=== PATIENT | female | born 1945 | race Caucasian/White ===

== ENCOUNTER → 2017-11-22 12:47 | Outpatient (CLI) | payer MEDICARE, SELFPAY ==
--- NOTE | 2017-11-22 13:03 | MM_ITS ---
MM Dig mamm DX unilat LT CAD COMPARISON: 05/19/2017, 05/05/2017 INDICATION: Follow-up abnormal mammogram ORDERING PHYSICIAN: Stephanie Morin MD PATIENT AGE: 72 years TECHNIQUE: Standard images performed with spot compression views FINDINGS: Average fibroglandular tissue. No malignant appearing microcalcification or malignant appearing mass. Asymmetric density noted in the superior aspect of the left breast does appear to compress out on compression views as before. Benign-appearing nodular opacity in the lateral aspect of the left breast is less apparent IMPRESSION: Benign findings, no evidence of malignancy BI-RADS Category: 2 Benign Finding(s) RECOMMENDED FOLLOW-UP: 6M - 6 MONTH FOLLOW-UP Recommend bilateral 6 month screening exam to keep the patient on screening schedule (A letter has been sent to the patient regarding results of the study.)
== END ==
PROVIDERS: Family Provider Family Medicine; PCP Family Medicine; Visit Provider Family Medicine
DX: R92.8 Other abnormal and inconclusive findings on diagnostic imaging of breast (principal)
CPT/HCPCS: 77065

== ENCOUNTER → 2018-05-10 09:13 | Outpatient (CLI) | payer MEDICARE, SELFPAY ==
--- NOTE | 2018-05-10 09:21 | MM_ITS ---
MM Dig screening mamm BI w/CAD ORDERING PHYSICIAN : Stephanie Morin MD PATIENT AGE: 72 years GENDER: Female COMPARISON: Bilateral mammogram April 2017. January 2014, March 2016, 2014. INDICATION: ITS.REASON: SCREENING patient does take evista. No hormones no new complaints. Family history. 2 sisters with breast cancer. One maternal aunt TECHNIQUE: Standard CC and MLO images were obtained. R2 CAD reviewed. FINDINGS: Moderate density breast. RIGHT BREAST:Stable right mammogram. Follow-up in one year LEFT BREAST:There is question last year are no longer evident on today's study further confirming they were merely summation shadows. Small nodular density at the lateral left breast on cc view stable since 2013 2014 studies.. Not of concern The skin mole marker at the medial left breast is again noted. Accounting for the density here. IMPRESSION: . no significant interval change. Stable mammogram Follow follow-up in one year recommended and would be emphasized & encouraged given the family history BI-RADS Category: 2 Benign Finding(s) RECOMMENDED FOLLOW-UP: 1YR 1 YEAR FOLLOW-UP (A letter has been sent to the patient regarding results of the study.)
== END ==
PROVIDERS: Family Provider Family Medicine; PCP Family Medicine; Visit Provider Family Medicine
DX: Z12.31 Encounter for screening mammogram for malignant neoplasm of breast (principal)
CPT/HCPCS: 77067

== ENCOUNTER → 2019-03-07 13:25 | Outpatient (CLI) | payer MEDICARE, SELFPAY ==
--- NOTE | 2019-03-07 13:29 | XR_ITS ---
XR DEXA axial skeleton HISTORY: ITS.REASON: OSTEOPENIA ORDERING PHYSICIAN: Stephanie Morin MD PATIENT AGE: 73 years COMPARISON: 02/28/2017 FINDINGS: The BMD measured at the AP spine L1-L4 is 0.950 g/cm squared with a T score of -1.9. This is considered Osteopenic according to the World Health Organization criteria. Fracture risk is Moderate. Treatment is advised. The L-spine density has decreased by 2.5%. The main hip density is -0.7 and has decreased by 2.8%. IMPRESSION: Osteopenia with moderate fracture risk. Treatment is advised. Suggest follow-up exam February 2021
== END ==
PROVIDERS: PCP Family Medicine; Visit Provider Family Medicine
DX: M85.89 Other specified disorders of bone density and structure, multiple sites (principal)
CPT/HCPCS: 77080

== ENCOUNTER → 2019-06-18 08:59 | Outpatient (CLI) | payer MEDICARE, SELFPAY ==
--- NOTE | 2019-06-18 09:06 | MM_ITS ---
PROCEDURE: MM DIG SCREENING MAMM BI W/CAD CLINICAL INDICATION: SCREENING There is a history of breast cancer patient's 2 sisters and maternal aunt COMPARISON: DMDXUAVL DIG MAMM-DX UNI A/VWS-LT W/CAD from 05/19/2017 DXLT MM Dig mamm DX unilat LT CAD from 11/22/2017 SCBI MM Dig screening mamm BI w/CAD from 05/10/2018 TECHNIQUE: Standard CC and MLO images were obtained. R2 CAD reviewed. FINDINGS: Scattered diffuse fibroglandular densities are seen throughout both breasts. There are 2 mole markers left breast. There is no suspicious lesion and no suspicious microcalcifications. IMPRESSION: Fibrofatty parenchyma with no suspicious lesions seen BI-RAD Category: 2 Benign Finding(s) FOLLOW-UP: 1YR 1 Year Follow-up (A letter has been sent to the patient regarding results of the study.) Dictated by: Dr. Americo Perez MD 06/24/2019 11:[address] Americo Perez MD in [place] 06/24/2019 11:02
== END ==
PROVIDERS: PCP Family Medicine; Visit Provider Family Medicine
DX: Z12.31 Encounter for screening mammogram for malignant neoplasm of breast (principal)
CPT/HCPCS: 77067

== ENCOUNTER → 2020-06-20 09:54 | Outpatient (CLI) | payer MEDICARE, SELFPAY ==
--- NOTE | 2020-06-20 09:57 | MM_ITS ---
PROCEDURE: MM DIG SCREENING MAMM BI W/CAD Referring Doctor: Stephanie Morin Patient Age:74Y CLINICAL INDICATION: SC routine screening mammogram. No hormones. No new complaints. Positive family history. Two sisters with breast cancer along with a maternal aunt COMPARISON: MG DMSB DIGITAL MAMM-SCREEN BILATERAL from 01/13/2012 MG DMSB DIGITAL MAMM-SCREEN BILATERAL from 01/16/2013 MG DMSB DIG MAMM-SCREEN HAILY from 01/22/2014 MG DMSB DIG MAMM-SCREEN HAILY from 03/18/2015 MG DMSB DIG MAMM-SCREEN HAILY from 03/19/2016 MG DMSB DIG MAMM-SCREEN HAILY W/CAD from 05/05/2017 MG DMDXUAVL DIG MAMM-DX UNI A/VWS-LT W/CAD from 05/19/2017 MG DXLT MM Dig mamm DX unilat LT CAD from 11/22/2017 MG SCBI MM Dig screening mamm BI w/CAD from 05/10/2018 MG MM DIG SCREENING MAMM BI W/CAD from 06/18/2019 TECHNIQUE: Standard CC and MLO images were obtained. R2 CAD reviewed. Bilateral digital breast tomosynthesis. Included additional axillary CC views both breast FINDINGS: Lower density breast with minimal residual diffuse a fibroglandular elements. . Right breast. Stable no new areas of concern Left breast:. Small 6 mm round left breast but in area labeled A at the deepleft breast laterally best seen on MLO tomosynthesis views. Likely stable feature and possibly even a skin mole-as was marked on 2018 MLO view There is a small focal density labeled B at lateral breast projected over the more superior breast. Other areas of nodularity superior left breast seem to dissipate on the MLO tomosynthesis views. However given the combination of features I suggest the patient return full 90 degree view left breast along with MLO and cc spot views of A and B-with mole markers placed on any visible moles. Ultrasound subsequent to this would be suggested Both nodule A and b are evident on the MLO tomosynthesis slice 10 at far lateral breast the There is a mole marker is again seen at the inferior-most breast IMPRESSION: Left breast: Additional views and ultrasound suggested Subtle small nodular densities described in text would benefit from spot views and ultrasound. The area labeled A could be skin mole as suggested on the 2018 MLO view thus mole markers on all visible moles will be important./[place] views may be be added at technologist discretion. Right breast stable. Follow-up 1 year on right. BI-RAD Category: 0 Need Additional Imaging Evaluation FOLLOW-UP: IMM Immediate Follow-up Recommended (A letter has been sent to the patient regarding results of the study.) Right [id number] a Dictated by: Vijay Mercado MD 06/25/2020 12:03 Vijay Mercado MD in [place] 06/25/2020 12:03
== END ==
PROVIDERS: PCP Family Medicine; Visit Provider Family Medicine
DX: Z12.31 Encounter for screening mammogram for malignant neoplasm of breast (principal)
CPT/HCPCS: 77063; 77067

== ENCOUNTER → 2020-07-01 13:49 | Outpatient (CLI) | payer MEDICARE, SELFPAY ==
--- NOTE | 2020-07-01 | US_ITS ---
PROCEDURE: MM DIG MAMM DX UNILAT LT CAD Digital Breast Tomosynthesis Included CLINICAL INDICATION: ABN MAMM COMPARISON: MG SCBI MM Dig screening mamm BI w/CAD from 05/10/2018 MG MM DIG SCREENING MAMM BI W/CAD from 06/18/2019 MG MM DIG SCREENING MAMM BI W/CAD from 06/20/2020 US US BREAST LT COMPLETE from 07/01/2020 TECHNIQUE: Problem solving views left breast along with left breast ultrasound FINDINGS: There is some minimal nodularity noted in the lateral aspect of the left breast on the spot view possibly due to summation density from overlapping vessel and fibroglandular tissue. Less apparent on the XCC view. There is a faint nodular opacity 5 cm deep to the nipple on the mL view. Less apparent on the focal spot view. Left breast ultrasound: No suspicious nodule evident. IMPRESSION: Probably benign findings. Recommend six-month mammographic follow-up BI-RAD Category: 3 Probably Benign Finding Short Term Follow-up FOLLOW-UP: 6M 6Month Follow-up (A letter has been sent to the patient regarding results of the study.) Dictated by: Gamaliel Guadarrama MD 07/09/2020 17:04 Gamaliel Guadarrama MD in [place] 07/09/2020 17:04
== END ==
PROVIDERS: PCP Family Medicine; Visit Provider Family Medicine
DX: R92.8 Other abnormal and inconclusive findings on diagnostic imaging of breast (principal)
CPT/HCPCS: 76641; 77061; 77065; G0279

== ENCOUNTER → 2021-01-06 13:40 | Outpatient (CLI) | payer MEDICARE, SELFPAY ==
--- NOTE | 2021-01-06 13:42 | MM_ITS ---
PROCEDURE: MM DIG MAMM DX UNILAT LT CAD Digital Breast Tomosynthesis Included CLINICAL INDICATION: ABN MAMM OF LT BREAST COMPARISON: MG MM DIG SCREENING MAMM BI W/CAD from 06/18/2019 MG MM DIG SCREENING MAMM BI W/CAD from 06/20/2020 US US BREAST LT COMPLETE from 07/01/2020 MG MM DIG MAMM DX UNILAT LT CAD from 07/01/2020 US US BREAST LT COMPLETE from 01/06/2021 TECHNIQUE: Standard CC and MLO images and 3D Tomosynthesis was obtained. R2 CAD reviewed. FINDINGS: The breast is composed of scattered fibroglandular tissue. No dominant mass lesions or suspicious calcification or architectural distortion is noted. Previously noted asymmetric density in the left breast is less distinct on the current study. Spot compression images demonstrate no evidence of focal masses. Ultrasound of the left breast demonstrates no focal mass lesions or suspicious findings. IMPRESSION: No focal suspicious lesions. BI-RAD Category: 2 Benign Finding(s) FOLLOW-UP: 1YR 1 Year Follow-up (A letter has been sent to the patient regarding results of the study.) Dictated by: Noelle Tobias 01/08/2021 18:46 Nolele Tobias in [place] 01/08/2021 18:46
--- NOTE | 2021-01-06 13:42 | US_ITS ---
PROCEDURE: US BREAST LT COMPLETE CLINICAL INDICATION: ABN MAMM OF LT BREAST COMPARISON: US US BREAST LT COMPLETE from 07/01/2020 FINDINGS: No focal masses or suspicious findings. Few axillary lymph nodes measuring up to 1.3 centimeters, demonstrates normal morphology and central fatty hilum. IMPRESSION: No focal masses or suspicious findings. Dictated by: Noelle Tobias 01/08/2021 18:47 Noelle Tobias in [place] 01/08/2021 18:47
== END ==
PROVIDERS: PCP Family Medicine; Visit Provider Family Medicine
DX: R92.8 Other abnormal and inconclusive findings on diagnostic imaging of breast (principal)
CPT/HCPCS: 76641; 77061; 77065; G0279

== ENCOUNTER → 2021-03-10 09:43 | Outpatient (CLI) | payer MEDICARE, SELFPAY ==
--- NOTE | 2021-03-10 09:57 | XR_ITS ---
PROCEDURE: XR DEXA AXIAL SKELETON CLINICAL HISTORY: OSTEOPENIA COMPARISON: CR BONE3 BONE DENSITOMETRY(HIP:LT SPINE from 02/28/2017 FINDINGS: The right hip BMD is 0.870 with a T-score of -0.6. The left hip BMD is 0.890 with a T-score of -0.4. The lumbar spine BMD is 0.947 with a T-score of -0.9. Previously the lowest bone density was in the AP spine with a T-score of -1.7 IMPRESSION: This patient is considered normal according to the World Health Organization criteria. Fracture risk is low. Based on these results a follow-up exam is recommended in 2 year. Dictated by: Gamaliel Guadarrama MD 03/11/2021 05:34 Gamaliel Guadarrama MD in [place] 03/11/2021 05:34
== END ==
PROVIDERS: PCP Family Medicine; Visit Provider Nurse Practitioner Family
DX: M85.89 Other specified disorders of bone density and structure, multiple sites (principal)
CPT/HCPCS: 77080

== ENCOUNTER → 2021-11-03 09:49 | Outpatient (CLI) | payer MEDICARE, SELFPAY ==
--- NOTE | 2021-11-03 10:02 | XR_ITS ---
FINAL REPORT CLINICAL HISTORY: BRONCHITIS, productive cough for 10 days, nonsmoker, no sx FINDINGS: TWO VIEWS OF THE CHEST The heart is normal in size. The mediastinum is unremarkable. The lungs are clear. There is no pneumothorax. IMPRESSION: No acute cardiopulmonary process. Reviewed, Interpreted and Dictated by Cole Montana MD Transcribed by Sulema Villalobos Authenticated by Cole Montana MD on 11/03/2021 11:59:10 AM [facility]
== END ==
PROVIDERS: PCP Family Medicine; Visit Provider Family Medicine
DX: J40 Bronchitis, not specified as acute or chronic (principal)
CPT/HCPCS: 71046

== ENCOUNTER → 2022-01-07 09:40 | Outpatient (CLI) | payer MEDICARE, SELFPAY ==
--- NOTE | 2022-01-07 09:44 | MM_ITS ---
PROCEDURE INFORMATION: Exam: MG Bilateral Screening 3D Mammography Exam date and time: 01/07/2022 9:42 AM Age: 76 years old Clinical indication: The patient presents for breast screening exam TECHNIQUE: Imaging protocol: Bilateral Screening tomosynthesis and 2D mammography including computer-aided detection (CAD) when performed. COMPARISON: 1. MG MM DIG MAMM DX UNILAT LT CAD 01/06/2021 1:59 PM 2. MG MM DIG MAMM DX UNILAT LT CAD 07/01/2020 1:57 PM FINDINGS: MAMMOGRAPHY: Breast composition: The breast tissue is composed of scattered areas of fibroglandular density. Mass: None. Architectural distortion: None. Calcifications: No suspicious calcifications. Asymmetric density: None. Skin thickening: None. Axillary adenopathy: None. IMPRESSION: No mammographic evidence of malignancy. Annual screening is recommended unless otherwise clinically indicated. ASSESSMENT: BI-RADS Category 1: Negative
== END ==
PROVIDERS: PCP Family Medicine; Visit Provider Family Medicine
DX: Z12.31 Encounter for screening mammogram for malignant neoplasm of breast (principal)
CPT/HCPCS: 77063; 77067

== ENCOUNTER → 2023-01-10 10:17 | Outpatient (CLI) | payer MEDICARE, SELFPAY ==
--- NOTE | 2023-01-10 10:20 | MM_ITS ---
PROCEDURE INFORMATION: Exam: MG Bilateral Screening 3D Mammography Exam date and time: 01/10/2023 10:13 AM Age: 77 years old Clinical indication: Screening examination. Two sisters and maternal aunt had breast cancer. TECHNIQUE: Imaging protocol: Bilateral Screening tomosynthesis and 2D mammography including computer-aided detection (CAD) when performed. COMPARISON: 1. MG MM DIG SCREENING MAMM BI W/CAD 01/07/2022 9:42 AM 2. MG MM DIG MAMM DX UNILAT LT CAD 01/06/2021 1:59 PM 3. MG MM DIG MAMM DX UNILAT LT CAD 07/01/2020 1:57 PM 4. MG MM DIG SCREENING MAMM BI W/CAD 06/20/2020 10:05 AM FINDINGS: MAMMOGRAPHY: Breast composition: There are scattered areas of fibroglandular density. Mass: None. Architectural distortion: None. Calcifications: No suspicious calcifications. Asymmetric density: None. Skin thickening: None. Axillary adenopathy: None. Other: Stable mild dilated bilateral retroareolar ducts. IMPRESSION: Stable mild bilateral retroareolar ducts, correlate clinically for history of nipple discharge, and if negative clinically, annual screening is recommended. ASSESSMENT: BI-RADS Category 2: Benign
== END ==
PROVIDERS: PCP Family Medicine; Visit Provider Family Medicine
DX: Z12.31 Encounter for screening mammogram for malignant neoplasm of breast (principal)
CPT/HCPCS: 77063; 77067

== ENCOUNTER → 2023-02-01 09:13 | Outpatient (POV) | payer MEDICARE, SELFPAY | PROVIDERS: Visit Provider Dermatology | DX: Z00.00 Encounter for general adult medical examination without abnormal findings (principal) ==

== ENCOUNTER → 2023-03-25 09:06 | Outpatient (CLI) | payer MEDICARE, SELFPAY ==
--- NOTE | 2023-03-25 09:11 | XR_ITS ---
FINAL REPORT TECHNIQUE: Bone densitometry calculations of the lumbar spine and left hip were obtained. CLINICAL HISTORY: osteopenia COMPARISON: 03/10/2021 FINDINGS: Using L1-4, the bone mineral density of the spine is 0.967 g/cm2, corresponding to T-score of -0.7. Using the left hip, the bone mineral density of the femoral neck is 0.887 g/cm2, corresponding to a T-score of -0.5. Using the right hip, the bone mineral density of the femoral neck is 0.885 g/cm2, corresponding to a T-score of -0.5. NOTE: T-score: Standard deviation compared with peak bone mass of young adult mean. *Following the recommendations of the International Society of Bone densitometry, classification of hip BMD is based on the lower of two T-scores; total hip or femoral neck. IMPRESSION: Normal bone mineral density of the lumbar spine and hip. FRAX was not reported because all of the T-scores are at or above -1.0 Reviewed, Interpreted and Dictated by Riley Radford III, MD Transcribed by Sulema Villalobos Authenticated and [facility]
== END ==
PROVIDERS: PCP Family Medicine; Visit Provider Family Medicine
DX: M85.89 Other specified disorders of bone density and structure, multiple sites (principal)
CPT/HCPCS: 77080

== ENCOUNTER 2024-01-16 10:58 | Outpatient (CLI) | payer MEDICARE, SELFPAY ==
--- NOTE | 2024-01-16 11:02 | MM_ITS ---
PROCEDURE INFORMATION: Exam: MG Bilateral Screening 3D Mammography Exam date and time: 01/16/2024 11:01 AM Age: 78 years old Clinical indication: Screening examination. Two sisters and a maternal aunt had breast cancer. TECHNIQUE: Imaging protocol: Bilateral Screening tomosynthesis and 2D mammography including computer-aided detection (CAD) when performed. COMPARISON: 1. MG MM DIG SCREENING MAMM BI W/CAD 01/10/2023 10:13 AM 2. MG MM DIG SCREENING MAMM BI W/CAD 01/07/2022 9:42 AM 3. MG MM DIG MAMM DX UNILAT LT CAD 01/06/2021 1:59 PM 4. MG MM DIG MAMM DX UNILAT LT CAD 07/01/2020 1:57 PM FINDINGS: MAMMOGRAPHY: Breast composition: There are scattered areas of fibroglandular density. Mass: None. Architectural distortion: None. Calcifications: No suspicious calcifications. Asymmetric density: None. Skin thickening: None. Axillary adenopathy: None. IMPRESSION: No mammographic evidence of malignancy. Annual screening is recommended unless otherwise clinically indicated. ASSESSMENT: BI-RADS Category 1: Negative
== END 2024-01-16 23:59 ==
LOC: RAD 10:58
PROVIDERS: PCP Family Medicine; Visit Provider Family Medicine
DX: Z12.31 Encounter for screening mammogram for malignant neoplasm of breast (principal)
CPT/HCPCS: 77063; 77067

== ENCOUNTER 2025-01-16 14:13 | Outpatient (CLI) | payer MEDICARE, SELFPAY ==
--- NOTE | 2025-01-16 14:16 | MM_ITS ---
PROCEDURE INFORMATION: Exam: MG Bilateral Screening 3D Mammography Exam date and time: 01/16/2025 2:24 PM Age: 79 years old Clinical indication: Screening examination TECHNIQUE: Imaging protocol: Bilateral Screening tomosynthesis and 2D mammography including computer-aided detection (CAD) when performed. COMPARISON: 1. MG MM DIG SCREENING MAMM BI W/CAD 01/16/2024 11:01 AM 2. MG MM DIG SCREENING MAMM BI W/CAD 01/10/2023 10:13 AM FINDINGS: MAMMOGRAPHY: Breast composition: There are scattered areas of fibroglandular density. Mass: No suspicious masses. Architectural distortion: None. Calcifications: No suspicious calcifications. Asymmetric density: None. Skin thickening: None. Axillary adenopathy: None. IMPRESSION: No mammographic evidence of malignancy. Annual screening is recommended unless otherwise clinically indicated. ASSESSMENT: BI-RADS Category 1: Negative.
== END 2025-01-16 23:59 | disposition home or self-care (01) ==
LOC: RAD 14:13
PROVIDERS: PCP Family Medicine; Visit Provider Family Medicine
DX: Z12.31 Encounter for screening mammogram for malignant neoplasm of breast (principal)
CPT/HCPCS: 77063; 77067

== ENCOUNTER 2025-05-01 09:09 | Outpatient (CLI) | payer MEDICARE, SELFPAY ==
--- OUTSIDE RECORDS SUMMARY | 2024-04-02 07:30 | XMS_ITS ---
Author Organization [facility] Address [address] [id number] Care Team Providers Care Supervisor [employer] Name Role Phone Nataly Morin Primary Care Provider [phone] Allergies No Known Allergies REASON FOR VISIT 6 months, Needs labs Medications Medication SIG (Take, Route, Frequency, Duration) Notes Start Date End Date Status Synthroid 150 MCG 1 tab(s) orally once a day; Duration: 90 days Active Losartan Potassium 50 MG 1 tab(s) orally twice a day; Duration: 90 days Active Carvedilol 6.25 MG 1 tab(s) orally 2 ti mes a day; Duration: 90 days Active amLODIPine Besylate 5 MG 1 tab(s) orally once a day; Duration: 90 days Active Triamterene-HCTZ 37.5-25 MG 1 tab(s) ora lly once a day Active Klor-Con M20 20 MEQ 1 tab(s) orally 2 ti mes a day; Duration: 90 days Active Alendronate Sodium 35 MG 1 tab(s) orally once a week Active B-12 1000 MCG 1/2 tab orally once a day Active Calcium + Vitamin D3 600-5 MG-MCG 1 tab(s) orally once daily Active Aspirin Adult Low Dose 81 MG 1 tab orally once a day Acti ve Pravastatin Sodium 20 MG 1 tab(s) orally once a day (at bedtime); Duration: 90 days Active Bactrim DS 800-160 MG 1 tablet Orally Tw o times a day; Duration: 7 days 04/02/2024 Active CoQ-10 100 MG 1 cap(s) orally once a day 07/07/2016 Active Ocuvite Adult 50+ - as directed Orally Active Advil 200 MG 1 tablet with food o r milk as needed Orally once a day Active Problems Problem Type SNOMED Code ICD Code Onset Dates Problem Status W/U Status Risk Notes Problem Hordeolum externum (2579503) Hordeolum externum of left upper eyelid (H00.014) Active confirmed Vital Signs Blood pressure systolic 122 mm Hg 04/02/20 Blood pressure diastolic 62 mm Hg 024 Heart Rate 66 /min 04/02/2024 Height 64 in 04/02/2024 Weight 161.6 lbs 04/02/2024 BMI 27.74 kg/m2 04/02/2024 Encounters Encounter Location Date Provider Diagnosis [facility] [address] [facility] [address] [facility] [address] [place] Pink [id number] 04/02/2024 Nataly Morin Essential hypertensi on I10 ; Acquired hypothyroidism E03.9 and Hordeolum externum of left upper eyelid H00.014 Assessments Encounter Date Diagnosis (ICD Code) Assessment Notes Treatment Notes Treatment Clinical Notes Section Notes 04/02/2024 Essential hypertension (ICD-10 - I10) 04/02/2024 Acquired hypothyroidism (ICD-10 - E03.9) 04/02/2024 Hordeolum externum of left upper eyelid (ICD-10 - H00.014) Plan Of Treatment Medication Medication Name Sig Start Date Stop Date Notes Bactrim DS 800-160 MG 1 tablet Orally Tw o times a day; Duration: 7 days 04/02/2024 Next Appt Details Follow Up: 6 Months, Reason: Provider Name:Nataly Asher er, 10/14/2025 09:45:00 AM, [address] [facility], [address], [place] [id number], Progress Notes * GUSTAVO ALEJANDRO:1945 ( 79 yo F)Acc No.[id number]:04/02/2024 Progress Notes Patient: TARAS SAMANIEGO Provider: Nataly Morin M.D. :1945 A ge:78 Y S ex:Female Date:04/02/2024 Address:[address] [place] [address], [place], [id number] Subjective: * Chief Complaints: * 1 . 6 months. 2. Needs labs. * HPI: C ardiology: The patient is here for a check up on Hypertension and Hyperlipidemia. Pt states she does check her BP at home and it has been in the 120's/60's. Pt is not fasting. Pt states she is needing refills sent to [facility] mail order [facility]. Denies : Chest Pain. D enies : Short of Breath. D enies : Dizziness. D enies : Palpitations. * ROS: D ERMATOLOGY: no R emre. n o H aguilar. G ASTROENTEROLOGY: no N ausea. n o V omiting. n o D iarrhea.? U ROLOGY: no D ifficulty urinating. n o B lood in urine. * Medical History: H ypertension, Arthritis, Hypothyroidism, [place] syndrome, Flu shot 2020, [facility], Shingix #1 , Moderna Covid Vaccine Nov/Dec 2020, COVID 19 Booster, Moderna 08/08/21, RSV vaccine 08/05/23, 06/30/23 COVID 19 booster and Flu shot. * Surgical History: c yst removed from right foot 2004, tubal ligation , bilateral knee replacement 12/15/09, post-op transfusion, 2 units 12/15/09, laser vein treatment, left leg, Dr.Ziad Prescott [phone] 08/12/16. * Hospitalization/Major Diagno stic Procedure: jl molina . * Family History: F ather: . M other: alive. 3 sister(s) . 1 son(s) , 4 daughter(s) . . 1 sister breast CA. * Social History: C URRENT TOBACCO USE S moking Status: Patient does NOT smoke. C affeine: yes, frequency:. Marital Status: Single. Past smoking status: no, Smoking status: Does not smoke. Alcohol: no. * Medications: T aking Advil 200 MG Tablet 1 tablet with food or milk as needed Orally once a day , Taking Ocuvite Adult 50+ - Capsule as directed Orally , Taking CoQ-10 100 MG Capsule 1 cap(s) orally once a day , Taking Aspirin Adult Low Dose 81 MG Tablet Delayed Release 1 tab orally once a day , Taking Calcium + Vitamin D3 600-5 MG-MCG Tablet 1 tab(s) orally once daily , Taking B-12 1000 MCG Tablet 1/2 tab orally once a day , Taking Alendronate Sodium 35 MG Tablet 1 tab(s) orally once a week , Taking Klor-Con M20 20 MEQ Tablet Extended Release 1 tab(s) orally 2 times a day , Taking Triamterene-HCTZ 37.5-25 MG Tablet 1 tab(s) orally once a day , Taking amLODIPine Besylate 5 MG Tablet 1 tab(s) orally once a day , Taking Carvedilol 6.25 MG Tablet 1 tab(s) orally 2 times a day , Taking Losartan Potassium 50 MG Tablet 1 tab(s) orally twice a day , Taking Synthroid 150 MCG Tablet 1 tab(s) orally once a day , Taking Pravastatin Sodium 20 MG Tablet 1 tab(s) orally once a day (at bedtime) , Medication List reviewed and reconciled with the patient * Allergies: N .K.D.A. Objective: * Vitals: W t:161.6, Temp:98.3, BP:122/62, HR:66, Nurse:WEST, Ht: 64, BMI:27.74. * Examination: G eneral Examination: General Appearance: N AD. H EENT: S clera and conjunctiva clear, PERRLA. Left upper lid with edema and erythema, no pustule. O ral cavity:?no lesions, mucosa moist and WNL, no erythema. N drew: s upple, no lymphadenopathy. C hest: n ormal shape and expansion. H eart: R SR. L ungs: c lear to auscultation. A bdomen: s oft and nontender. N eurologic Exam: I ntact, gait normal. S kin:?normal, no rash. P eripheral pulses: n ormal. B ack: mild dorsal kyphosis. Extremities: m inimal l eg edema, prominent varicosities. G enitalia: not examined. Assessment: * Assessment: 1. E ssential hypertension - I10 (Primary) 2 . A cquired hypothyroidism - E03.9 3 . H ordeolum externum of left upper eyelid - H00.014 Plan: * Treatment: * Follow Up: 6 Months * Images: Billing Information: * Visit Code: 72806 Office Visit, Est Pt., Level 4. * Procedure Codes: * Electronic signature of Nataly Morin MD on 05/01/2025 at 09:12 AM EDT Sign off status: Pending * Provider: Nataly Morin M.D. Date: 0 04/02/2024 Generated for Roberti ng/Eligio/eTransmitting on: 0 05/01/2025 09:12 AM EDT History and Physical Notes * HPI (History of Present Illness) Category Sub-Category Detail Notes Category Not es Cardiology Short of Breath Chest Pain Palpitations Dizziness Examination Category Sub-Category Detail Notes Category Not es General Examination HEENT: Sclera and c onjunctiva clear, PERRLA. Left upper lid with edema and erythema, no pustule Heart: RSR Lungs: clear to auscultatio n Abdomen: soft and nontender Extremities: minimal leg edema, p rominent varicosities General Appearance: NAD Skin: normal, no rash Neurologic Exam: Intact, gait normal Neck: supple, no lymphaden opathy Oral cavity: no lesions, mucosa m oist and WNL, no erythema Peripheral pulses: normal Back: mild dorsal kyphosis Genitalia: not examined Chest: normal shape and exp ansion
--- OUTSIDE RECORDS SUMMARY | 2024-10-05 05:30 | XMS_ITS ---
[facility] Organization [facility] [place] Address [address] [facility] [address] [place], [place] [id number] Care Team Providers Care Sprayer Machine Name Role Phone Nataly Morin Primary Care Provider Allergies No Known Allergies Results Component Value Reference Range Notes P-Comprehensive Metabolic Pa mone (CMP) Reviewed date:10/08/2024 10:11:55 AM Interpretation:Na 130, cl 94, gluc 106, bili 1.4 Performing Lab: Notes/Report: Test performed by [facility] , [address], [place] [address] Pavan Lorenzo MD, Technical Support Representative CLIA: [id number] Sodium 130 135-145 mmol/L Potassium 4.8 3.5-5.3 mmol/L Chloride 94 97-108 mmol/L CO2 26 22-32 mmol/L Glucose 106 65-99 mg/dL BUN 15 8-23 mg/dL Creatinine 0.78 0.50-1.00 mg/dL Calcium 9.3 8.6-10.4 mg/dL eGFR by Creatinine 76 >59 mL/min/1.73m2 Protein 6.9 6.0-8.3 g/dL Albumin 4.5 3.5-5.3 g/dL Alkaline Phosphatase 120 35-121 IU/L ALT (SGPT) 16 <5-47 IU/L AST (SGOT) 19 <5-40 IU/L Bilirubin, Total 1.4 <0.2-1.2 mg/dL A/G Ratio 1.9 1.1-2.5 P-Lipid Panel Reviewed date:10/08/2024 10:11:55 AM Interpretation: Normal Performing Lab: Notes/Report: Test performed by [facility], [address], [place] [address] Pavan Lorenzo MD, Technical Support Representative CLIA: [id number] Cholesterol 138 <200 mg/dL Triglycerides 70 <150 mg/dL HDL Cholesterol 57 >39 mg/dL Cholesterol / HDL Ratio 2.42 0.00-4.44 Ratio Non-HDL Cholesterol 81 <130 mg/dL LDL Cholesterol (Calculation) 67 <130 mg/dL LDL Cholesterol Levels* Less than 100 mg/dL Optimal 100 to 129 mg/dL Near Optimal/ Above Optimal 130 to 159 mg/dL Borderline High 160 to 189 mg/dL High 190 mg/dL and above Very High * Categories as recommended by the 2004 ATPIII guidelines LDL/HDL Ratio 1.2 <3.3 Ratio LDL Cholesterol Patient History Test Date: 03/16/2023 LDL Results: 70 Units: mg/dL % Change: - Test Date: 03/28/2024 LDL Results: 69 Units: mg/dL % Change: -1% Test Date: 10/05/2024 LDL Results: 67 Units: mg/dL % Change: -2% P-TSH Reviewed date:10/08/2024 10:11:55 AM Interpretation: Normal Performing Lab: Notes/Report: Test performed by [facility] [address] [place] [address] , [facility], [place] [address] Pavan Lorenzo MD, Technical Support Representative CLIA: [id number] TSH 1.34 0.43-5.25 mU/L REASON FOR VISIT 6 month f/u, Needs labs Medications Medication SIG (Take, Route, Frequency, Duration) Notes Start Date End Date Status Triamterene-HCTZ 37.5-25 MG 1 tab(s) ora lly once a day Active amLODIPine Besylate 5 MG 1 tab(s) orally once a day; Duration: 90 days Active Pravastatin Sodium 20 MG 1 tab(s) orally once a day (at bedtime); Duration: 90 days Active Synthroid 150 MCG 1 tab(s) orally once a day; Duration: 90 days Active Losartan Potassium 50 MG 1 tab(s) orally twice a day; Duration: 90 days Active Carvedilol 6.25 MG 1 tab(s) orally 2 ti mes a day; Duration: 90 days Active Klor-Con M20 20 MEQ 1 tab(s) orally 2 ti mes a day; Duration: 90 days Active Alendronate Sodium 35 MG 1 tab(s) orally once a week Active B-12 1000 MCG 1/2 tab orally once a day Active Advil 200 MG 1 tablet with food o r milk as needed Orally once a day Active Calcium + Vitamin D3 600-5 MG-MCG 1 tab(s) orally once daily Active Aspirin Adult Low Dose 81 MG 1 tab orally once a day Acti ve CoQ-10 100 MG 1 cap(s) orally once a day 07/07/2016 Active Ocuvite Adult 50+ - as directed Orally Active Vital Signs Blood pressure systolic 130 mm Hg 10/05/20 24 Blood pressure diastolic 70 mm Hg 024 Heart Rate 67 /min 10/05/2024 Height 64 in 10/05/2024 Weight 165.6 lbs 10/05/2024 BMI 28.42 kg/m2 10/05/2024 Encounters Encounter Location Date Provider Diagnosis [facility] [address] [facility] [address] [place], [place] [id number] 10/05/2024 Nataly Morin Essential hypertensi on I10 ; Acquired hypothyroidism E03.9 ; Varicose veins of legs I83.93 and Pure hypercholesterolemia, unspecified E78.00 Assessments Encounter Date Diagnosis (ICD Code) Assessment Notes Treatment Notes Treatment Clinical Notes Section Notes 10/05/2024 Essential hypertension (ICD-10 - I10) 10/05/2024 Acquired hypothyroidism (ICD-10 - E03.9) 10/05/2024 Varicose veins of legs (ICD-10 - I83.93) 10/05/2024 Pure hypercholesterolemi a, unspecified (ICD-10 - E78.00) Plan Of Treatment Medication Medication Name Sig Start Date Stop Date Notes Triamterene-HCTZ 37.5-25 MG 1 tab(s) orally once a day amLODIPine Besylate 5 MG 1 tab(s) orally once a day; Duration: 90 days Pravastatin Sodium 20 MG 1 tab(s) orally once a day (at bedtime); Duration: 90 days Synthroid 150 MCG 1 tab(s) orally once a day; Duration: 90 days Losartan Potassium 50 MG 1 tab(s) orally twice a day; Duration: 90 days Carvedilol 6.25 MG 1 tab(s) orally 2 ti mes a day; Duration: 90 days Klor-Con M20 20 MEQ 1 tab(s) orally 2 ti mes a day; Duration: 90 days Next Appt Details Follow Up: 6 Months, Reason: Provider Name:Nataly emery, 10/14/2025 09:45:00 AM, [address] [facility], [address], [place], [id number], Progress Notes * CHAN ALEJANDROOB:1945 ( 79 yo F)Acc No.[id number]:10/05/2024 Progress Notes Patient: TARAS SAMANIEGO Provider: Nataly Morin M.D. :1945 A ge:78 Y S ex:Female Date:10/05/2024 Address:[address] [place] [address], [facility] [id number] Subjective: * Chief Complaints: * 1 . 6 month f/u. 2. Needs labs. * HPI: C ardiology: The patient is here for a check up on Hypertension and Hyperlipidemia. Pt states she is doing good and denies any new concerns. Pt is fasting. 78 year old female presents with c/o Short of Breath w ith exertion. Denies : Chest Pain. D enies : Dizziness. D enies : Palpitations. E NT/respiratory: Dental issues. Asks about prophylaxis regarding the knee replacement. We reviewed 2022 AAKS article (Volume 39, Issue 9, Supplement 2, [id number], June 2024. This article suggests prophylaxis is NOT NECESSARY AFTER ROSALINA/TKA. * ROS: D ERMATOLOGY: no R emre. n o H aguilar. G ASTROENTEROLOGY: no N ausea. n o V omiting. n o D iarrhea.? U ROLOGY: no D ifficulty urinating. n o B lood in urine. * Medical History: H ypertension, Arthritis, Hypothyroidism, Dewey syndrome, Flu shot 2020, [facility], Shingix #1 , Moderna Covid Vaccine Dec 2020, COVID 19 Booster, Moderna 08/08/21, RSV vaccine 08/05/23, 06/30/23 COVID 19 booster and Flu shot. 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 * Hospitalization/Major Diagno stic Procedure: c hildbirth . * Family History: F ather: . [...] orally 2 times a day , Taking Carvedilol 6.25 MG Tablet 1 tab(s) orally 2 times a day , Taking amLODIPine Besylate 5 MG Tablet 1 tab(s) orally once a day , Taking Triamterene-HCTZ 37.5-25 MG Tablet 1 tab(s) orally once a day , Taking Losartan Potassium 50 MG Tablet 1 tab(s) orally twice a day , Taking Synthroid 150 MCG Tablet 1 tab(s) orally once a day , Taking Pravastatin Sodium 20 MG Tablet 1 tab(s) orally once a day (at bedtime) , Discontinued Bactrim DS 800-160 MG Tablet 1 tablet Orally Two times a day , Medication List reviewed and reconciled with the patient * Allergies: N .K.D.A. Objective: * Vitals: W t:165.6, Temp:97.4, BP:130/70, HR:67, Nurse:WEST, Ht: 64, BMI:28.42. * Examination: G eneral Examination: General Appearance: N AD. H EENT: S clera and conjunctiva clear, PERRLA. Subtle chalazion of left uppper lid. O ral cavity: n o lesions, mucosa moist and WNL, no erythema. N drew: s upple, no lymphadenopathy. C hest: normal shape and expansion. H eart: R SR. L ungs: c lear to auscultation. A bdomen: s oft and nontender. N eurologic Exam: I ntact, gait normal. S kin: n ormal, no rash. P eripheral pulses: n ormal. B ack: mild dorsal kyphosis. E xtremities: m inimal l eg edema, prominent varicosities. G enitalia: not examined. ? Assessment: * Assessment: 1. E ssential hypertension - I10 (Primary) 2 . A cquired hypothyroidism - E03.9 3 . V aricose veins of legs - I83.93 4 . P ure hypercholesterolemia, unspecified - E78.00 Plan: * Treatment: Value Reference Range A /G Ratio 1.9 1.1-2.5 - * A lbumin 4.5 3.5-5.3 - g/dL * A lkaline Phosphatase 120 35-121 - IU/L * A LT (SGPT) 16 <5-47 - IU/L * A ST (SGOT) 19 <5-40 - IU/L * B ilirubin, Total 1.4 H <0.2-1.2 - mg/dL * B UN 15 8-23 - mg/dL * C alcium 9.3 8.6-10.4 - mg/dL * C hloride 94 L 97-108 - mmol/L * C O2 26 22-32 - mmol/L * C reatinine 0.78 0.50-1.00 - mg/dL * G lucose 106 H 65-99 - mg/dL * P otassium 4.8 3.5-5.3 - mmol/L * S odium 130 L 135-145 - mmol/L * P rotein 6.9 6.0-8.3 - g/dL * e GFR by Creatinine 76 >59 - mL/min/1.73m2 * Xiomy Widl 10/08/2024 10:1 1:50 AM >See phone encounter 2.?Acquired hypothyroidism? Refill Synthroid Tablet, 150 MCG, 1 tab(s), orally, once a day, 90 days, 90 Tablet, Refills 1.?LAB: P-TSH (Collection Date & Time - 10/05/2024 09:30 AM)?Normal* Value Reference Range T SH 1.34 0.43-5.25 - mU/L * Xiomy Wild 10/08/2024 10:1 1:50 AM >See phone encounter 3.?Pure hypercholesterolemia, unspecified? Refill Pravastatin Sodium Tablet, 20 MG, 1 tab(s), orally, once a day (at bedtime), 90 days, 90, Refills 1.?LAB: P-Lipid Panel (Collection Date & Time - 10/05/2024 09:30 AM)?Normal* Value Reference Range C holesterol / HDL Ratio 2.42 0.00-4.44 - Ratio * C holesterol 138 <200 - mg/dL * H DL Cholesterol 57 >39 - mg/dL * L DL Cholesterol (Calculation) 67 <130 - mg/d L * L DL/HDL Ratio 1.2 <3.3 - Ratio * N on-HDL Cholesterol 81 <130 - mg/dL * T riglycerides 70 <150 - mg/dL * Xiomy Wild 10/08/2024 10:1 1:50 AM >See phone encounter * Procedure Codes: G 2211 Complex e/m visit add on * Follow Up: 6 Months * Images: Billing Information: * Visit Code: 79271 Office Visit, Est Pt., Level 4. * Procedure Codes: G2211 Complex e/m visit add on. * Electronic signature of Nataly Morin MD on 05/01/2025 at 09:12 AM EDT Sign off status: Pending * Provider: Nataly Morin M.D. Date: 1 12/06/2023 Generated for Printi ng/Fachristiang/eTransmitting on: 0 05/01/2025 09:12 AM EDT History and Physical Notes * HPI (History of Present Illness) Category Sub-Category Detail Notes Category Not es Cardiology Short of Breath with exertion Chest Pain Palpitations Dizziness Examination Category Sub-Category Detail Notes Category Not es General Examination HEENT: Sclera and c onjunctiva clear, PERRLA. Subtle chalazion of left uppper lid Heart: RSR Lungs: clear to auscultatio n [...]
--- OUTSIDE RECORDS SUMMARY | 2025-04-09 05:15 | XMS_ITS ---
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 Role Phone Nataly Morin Primary Care Provider [place], [place] Unavailable [phone] Allergies No Known Allergies Results Component Value Reference Range Notes P-Comprehensive Metabolic Pa mone (CMP) Reviewed date:04/10/2025 04:40:12 PM Interpretation:Na 132, cl 96, gluc 119, alk phos 122, bili 1.3 Performing Lab: Notes/Report: Test performed by [facility] [address] [place] [address] , [address], [place] [address] Pavan Lorenzo MD, Chemical Supervisor CLIA: [id number] Sodium 132 135-145 mmol/L Potassium 4.1 3.5-5.3 mmol/L Chloride 96 97-108 mmol/L CO2 23 20-32 mmol/L Glucose 119 65-99 mg/dL BUN 18 8-23 mg/dL Creatinine 0.75 0.50-1.00 mg/dL Calcium 9.1 8.6-10.4 mg/dL eGFR by Creatinine 80 >59 mL/min/1.73m2 Protein 6.8 6.0-8.3 g/dL Albumin 4.4 3.5-5.3 g/dL Alkaline Phosphatase 122 35-121 IU/L ALT (SGPT) 15 <5-47 IU/L AST (SGOT) 17 <5-40 IU/L Bilirubin, Total 1.3 <0.2-1.2 mg/dL A/G Ratio 1.8 1.1-2.5 P-T4 Free (thyroxine) Reviewed date:04/10/2025 04:40:12 PM Interpretation:Normal Performing Lab: Notes/Report: Test performed by [facility] [address] [place] [address] Pavan Lorenzo MD, Chemical Supervisor CLIA: [id number] Thyroxine Free (free T4) 1.75 0.86-1.76 ng/dL P-Lipid Panel Reviewed date:04/10/2025 04:40:12 PM Interpretation:Normal Performing Lab: Notes/Report: Test performed by [facility] [address] [place] [address] Pavan Lorenzo MD, Chemical Supervisor CLIA: [id number] Cholesterol 136 <200 mg/dL Triglycerides 97 <150 mg/dL HDL Cholesterol 49 >39 mg/dL Cholesterol / HDL Ratio 2.78 0.00-4.44 Ratio Non-HDL Cholesterol 87 <130 mg/dL LDL Cholesterol (Calculation) 68 <130 mg/dL LDL Cholesterol Levels* Less than 100 mg/dL Optimal 100 to 129 mg/dL Near Optimal/ Above Optimal 130 to 159 mg/dL Borderline High 160 to 189 mg/dL High 190 mg/dL and above Very High * Categories as recommended by the 2004 ATPIII guidelines LDL/HDL Ratio 1.4 <3.3 Ratio LDL Cholesterol Patient History Test Date: 03/28/2024 LDL Results: 69 Units: mg/dL % Change: -1% Test Date: 10/05/2024 LDL Results: 67 Units: mg/dL % Change: -2% Test Date: 04/09/2025 LDL Results: 68 Units: mg/dL % Change: +1% P-TSH Reviewed date:04/10/2025 04:40:13 PM Interpretation:Normal Performing Lab: Notes/Report: Test performed by [facility] [address] [place], [place] [address] , [address] , [place] [address] Pavan Lorenzo MD, Chemical Supervisor CLIA: [id number] TSH 0.57 0.43-5.25 mU/L P-Microalbumin/Creatinine, R andom Urine Sample Reviewed date:04/10/2025 04:40:13 PM Interpretation:Normal Performing Lab: Notes/Report: Test performed by [facility] [address] [place], [place] [address] , [address], [place] [address] Pavan Lorenzo MD, Chemical Supervisor CLIA: [id number] Albumin/Creatinine Ratio, Urine 27 0-30 ug/m g Microalbumin, Urine, Random 1.8 Creatinine, Urine 67.8 REASON FOR VISIT 6 month checkup, Needs labs & bone density screening Medications Medication SIG (Take, Route, Frequency, Duration) Notes Start Date End Date Status Advil 200 MG 1 tablet with food o r milk as needed Orally once a day Active Pravastatin Sodium 20 MG 1 tab(s) orally once a day (at bedtime); Duration: 90 days Active Alendronate Sodium 35 MG 1 tab(s) orally once a week; Duration: 90 days Active Maxidex 0.1 % as directed Ophthalmic Active Synthroid 150 MCG 1 tab(s) orally once a day; Duration: 90 days Active amLODIPine Besylate 5 MG 1 tab(s) orally once a day; Duration: 90 days Active B-12 1000 MCG 1/2 tab orally once a day Active Carvedilol 6.25 MG 1 tab(s) orally 2 ti mes a day; Duration: 90 days Active Irbesartan-hydroCHLOROthiaz violette 300-12.5 MG 1 tablet Orally Once a day; Duration: 90 days 04/09/2025 Active CoQ-10 100 MG 1 cap(s) orally once a day 07/07/2016 Active Aspirin Adult Low Dose 81 MG 1 tab orally once a day Acti ve Calcium + Vitamin D3 600-5 MG-MCG 1 tab(s) orally once daily Active Ocuvite Adult 50+ - as directed Orally Active Problems Problem Type SNOMED Code ICD Code Onset Dates Problem Status W/U Status Risk Notes Problem Pure hypercholesterolemia (252164829) Pure hypercholesterolemia (E78.00) Active confirmed Vital Signs Blood pressure systolic 132 mm Hg 04/09/20 25 Blood pressure diastolic 70 mm Hg 025 Heart Rate 69 /min 04/09/2025 Height 64 in 04/09/2025 Weight 165 lbs 04/09/2025 BMI 28.32 kg/m2 04/09/2025 Encounters Encounter Location Date Provider Diagnosis [facility] [address], [place] [id number] 04/09/2025 [place] Essential hypertensi on I10 ; Acquired hypothyroidism E03.9 ; Hypokalemia E87.6 ; Hyponatremia E87.1 ; Pure hypercholesterolemia E78.00 ; Osteoporosis screening Z13.820 ; Wart of hand B07.9 and BMI 28.0-28.9,adult Z68.28 Assessments Encounter Date Diagnosis (ICD Code) Assessment Notes Treatment Notes Treatment Clinical Notes Section Notes 04/09/2025 Essential hypertensi on (ICD-10 - I10) 04/09/2025 Acquired hypothyroid ism (ICD-10 - E03.9) 04/09/2025 Hypokalemia (ICD-10 - E87.6) 04/09/2025 Hyponatremia (ICD-10 - E87.1) 04/09/2025 Pure hypercholesterolemia (ICD-10 - E78.00) 04/09/2025 Osteoporosis screeni ng (ICD-10 - Z13.820) 04/09/2025 Wart of hand (ICD-10 - B07.9) 04/09/2025 BMI 28.0-28.9,adult (ICD-10 - Z68.28) Plan Of Treatment Medication Medication Name Sig Start Date Stop Date Notes Klor-Con M20 20 MEQ 1 tablet with food o rally 2 times a day Irbesartan-hydroCHLOROthiazi de 300-12.5 MG 1 tablet Orally Once a day; Duration: 90 days 04/09/2025 Losartan Potassium 50 MG 1 tab(s) orally twice a day Triamterene-HCTZ 37.5-25 MG 1 tab(s) orally once a day Pending Test Test Name Order Date DEXA Hip and Spine 04/09/2025 Next Appt Details Follow Up: via phone to repo rt progress,6 Months, Reason: Provider Name:Nataly emery, 10/14/2025 09:45:00 AM, [address] [facility] [address] [facility], [address], [place], [place], [id number], Procedure Notes * Category Sub-Category Detail Notes Cryotherapy Wart Indication(s): verrucoid lesio n Number treated: 1 Consent: The patient understo od all the risks and benefits prior to treatment. The risks explained included scarring, hyper and/or hypo pigmentation. Although this treatment is highly effective, recurrences do occur and this was explained to the patient Method: freeze, refreeze Post-Op instruction: The patient tolerat ed the procedure well, Post Op instructions were given. Signs of infection were discussed. The patient was informed to call if any signs of infection develop such as increasing pain, purulent drainage or beefy redness. The patient was informed that a blister may occur at the cryo site and that this is an expected event. Progress Notes * GUSTAVO ALEJANDRO:1945 ( 79 yo F)Acc No.[id number]:04/09/2025 Progress Notes Patient: TARAS SAMANIEGO Provider: John Powers M.D. :1945 A ge:79 Y S ex:Female Date:04/09/2025 Address:[address] [place] [address], [id number] Pcp:Nataly Morin Subjective: * Chief Complaints: * 1 . 6 month checkup. 2. Needs labs & bone density screening. * HPI: C ardiology: 79 year old female presents with c/o Blood Pressure Elevated?Pt here for 6 mo f/u on hypertension. . c/o Hyperlipidemia P t is fasting today.? D ermatology: c/o skin lesion P t has an place on her right hand. Pt states that its been there for about a year off and on. Pt states spot on hand does not hurt unless she bumps it on something. * ROS: D ERMATOLOGY: no R emre. n o H aguilar. G ASTROENTEROLOGY: no N ausea. n o V omiting. U ROLOGY: no D ifficulty urinating. n o B lood in urine. * Medical History: H ypertension, Arthritis, Hypothyroidism, Cascade syndrome, Flu shot 2020, [employer], Shingix #1 , Moderna Covid Vaccine Nov/Dec 2020, COVID 19 Booster, Moderna 08/08/21, RSV vaccine 08/05/23, 06/30/23 COVID 19 booster and Flu shot. * Surgical History: c yst removed from right foot 2004, tubal ligation , bilateral knee replacement 12/15/2009, post-op transfusion, 2 units 12/15/2009, laser vein treatment, left leg, Dr.Ziad Prescott [phone] 08/12/2016. * Hospitalization/Major Diagno stic Procedure: c jesse . * Family History: F ather: . M other: alive. 3 sister(s) . 1 son(s) , 4 daughter(s) . . 1 sister breast CA. * Social History: C URRENT TOBACCO USE: No . C affeine: yes, frequency:. Marital Status: Single. Past smoking status: no, Smoking status: Does not smoke. Alcohol: no. * Medications: T aking Maxidex 0.1 % Suspension as directed Ophthalmic , Taking Advil 200 MG Tablet 1 tablet with [...] tab orally once a day , Taking Carvedilol [...] orally once a day (at bedtime) , Taking Alendronate Sodium 35 MG Tablet 1 tab(s) orally once a week , Taking Klor-Con M20 20 MEQ Tablet Extended Release 1 tablet with food orally 2 times a day , Medication List reviewed and reconciled with the patient * Allergies: N .K.D.A. Objective: * Vitals: W t: 165, Temp: 97.5, BP: 132/70, HR: 69, Nurse: darian/glenna, Ht: 64, BMI:28.32. * Examination: G eneral Examination: General Appearance: N AD. H eart: R SR. L ungs:?clear to auscultation. S kin: 3 mm wide white papule near the 4 th MCP joint. E xtremities: n o leg edema. Assessment: * Assessment: 1. E ssential hypertension - I10 (Primary) 2 . A cquired hypothyroidism - E03.9 3 . H ypokalemia - E87.6 4 . H yponatremia - E87.1 5 . P ure hypercholesterolemia - E78.00 6 . O steoporosis screening - Z13.820 7 . W art of hand - B07.9 8 . B SC 28.0-28.9,adult - Z68.28 Plan: * Treatment: Value Reference Range A /G Ratio 1.8 1.1-2.5 - * A lbumin 4.4 3.5-5.3 - g/dL * A lkaline Phosphatase 122 H 35-121 - IU/L * A LT (SGPT) 15 <5-47 - IU/L * A ST (SGOT) 17 <5-40 - IU/L * B ilirubin, Total 1.3 H <0.2-1.2 - mg/dL * B UN 18 8-23 - mg/dL * C alcium 9.1 8.6-10.4 - mg/dL * C hloride 96 L 97-108 - mmol/L * C O2 23 20-32 - mmol/L * C reatinine 0.75 0.50-1.00 - mg/dL * G lucose 119 H 65-99 - mg/dL * P otassium 4.1 3.5-5.3 - mmol/L * S odium 132 L 135-145 - mmol/L * P rotein 6.8 6.0-8.3 - g/dL * e GFR by Creatinine 80 >59 - mL/min/1.73m2 * Xiomy Wild 04/10/2025 04:39 :48 PM EDT > See phone encounter ?LAB: P-Microalbumin/Creatinine, Random Urine Sample (Collection Date & Time - 04/09/2025 09:02 AM)?Normal* Value Reference Range A lbumin/Creatinine Ratio, Urine 27 0-30 - ug /mg * C reatinine, Urine 67.8 - mg/dL * M icroalbumin, Urine, Random 1.8 - mg/dL * Xiomy Wild 04/10/2025 04:39 :48 PM EDT > See phone encounter 2.?Acquired hypothyroidism?LAB: P-T4 Free (thyroxine) (Collection Date & Time - 04/09/2025 09:02 AM)? Normal* Value Reference Range T hyroxine Free (free T4) 1.75 0.86-1.76 - ng/d L * Xiomy Wild 04/10/2025 04:39 :48 PM EDT > See phone encounter ?LAB: P-TSH (Collection Date & Time - 04/09/2025 09:02 AM)?Normal* Value Reference Range T SH 0.57 0.43-5.25 - mU/L * Xiomy Wild 04/10/2025 04:39 :48 PM EDT > See phone encounter 3.?Hypokalemia?LAB: P-Comprehensive Metabolic Panel (CMP) (Collection Date & Time - 04/09/2025 09:02 AM)?Na 132, cl 96, gluc 119, alk phos 122, bili 1.3* Value Reference Range A /G Ratio 1.8 1.1-2.5 - * A lbumin 4.4 3.5-5.3 - g/dL * A lkaline Phosphatase 122 H 35-121 - IU/L * A LT (SGPT) 15 <5-47 - IU/L * A ST (SGOT) 17 <5-40 - IU/L * B ilirubin, Total 1.3 H <0.2-1.2 - mg/dL * B UN 18 8-23 - mg/dL * C alcium 9.1 8.6-10.4 - mg/dL * C hloride 96 L 97-108 - mmol/L * C O2 23 20-32 - mmol/L * C reatinine 0.75 0.50-1.00 - mg/dL * G lucose 119 H 65-99 - mg/dL * P otassium 4.1 3.5-5.3 - mmol/L * S odium 132 L 135-145 - mmol/L * P rotein 6.8 6.0-8.3 - g/dL * e GFR by Creatinine 80 >59 - mL/min/1.73m2 * Xiomy Wild 04/10/2025 04:39 :48 PM EDT > See phone encounter 4.?Hyponatremia? Stop Klor-Con M20 Tablet Extended Release, 20 MEQ, 1 tablet with food, orally, 2 times a day.?LAB: P-Comprehensive Metabolic Panel (CMP) (Collection Date & Time - 04/09/2025 09:02 AM)?Na 132, cl 96, gluc 119, alk phos 122, bili 1.3* Value Reference Range A /G Ratio 1.8 1.1-2.5 - * A lbumin 4.4 3.5-5.3 - g/dL * A lkaline Phosphatase 122 H 35-121 - IU/L * A LT (SGPT) 15 <5-47 - IU/L * A ST (SGOT) 17 <5-40 - IU/L * B ilirubin, Total 1.3 H <0.2-1.2 - mg/dL * B UN 18 8-23 - mg/dL * C alcium 9.1 8.6-10.4 - mg/dL * C hloride 96 L 97-108 - mmol/L * C O2 23 20-32 - mmol/L * C reatinine 0.75 0.50-1.00 - mg/dL * G lucose 119 H 65-99 - mg/dL * P otassium 4.1 3.5-5.3 - mmol/L * S odium 132 L 135-145 - mmol/L * P rotein 6.8 6.0-8.3 - g/dL * e GFR by Creatinine 80 >59 - mL/min/1.73m2 * Xiomy Wild 04/10/2025 04:39 :48 PM EDT > See phone encounter 5.?Pure hypercholesterolemia?LAB: P-Comprehensive Metabolic Panel (CMP) (Collection Date & Time - 04/09/2025 09:02 AM)?Na 132, cl 96, gluc 119, alk phos 122, bili 1.3* Value Reference Range A /G Ratio 1.8 1.1-2.5 - * A lbumin 4.4 3.5-5.3 - g/dL * A lkaline Phosphatase 122 H 35-121 - IU/L * A LT (SGPT) 15 <5-47 - IU/L * A ST (SGOT) 17 <5-40 - IU/L * B ilirubin, Total 1.3 H <0.2-1.2 - mg/dL * B UN 18 8-23 - mg/dL * C alcium 9.1 8.6-10.4 - mg/dL * C hloride 96 L 97-108 - mmol/L * C O2 23 20-32 - mmol/L * C reatinine 0.75 0.50-1.00 - mg/dL * G lucose 119 H 65-99 - mg/dL * P otassium 4.1 3.5-5.3 - mmol/L * S odium 132 L 135-145 - mmol/L * P rotein 6.8 6.0-8.3 - g/dL * e GFR by Creatinine 80 >59 - mL/min/1.73m2 * Xiomy Wild 04/10/2025 04:39 :48 PM EDT > See phone encounter ?LAB: P-Lipid Panel (Collection Date & Time - 04/09/2025 09:02 AM)?Normal* Value Reference Range C holesterol / HDL Ratio 2.78 0.00-4.44 - Ratio * C holesterol 136 <200 - mg/dL * H DL Cholesterol 49 >39 - mg/dL * L DL Cholesterol (Calculation) 68 <130 - mg/d L * L DL/HDL Ratio 1.4 <3.3 - Ratio * N on-HDL Cholesterol 87 <130 - mg/dL * T riglycerides 97 <150 - mg/dL * Xiomy Wild 04/10/2025 04:39 :48 PM EDT > See phone encounter 6.?Osteoporosis screening?Imaging: DEXA Hip and Spine* Soheila Adalgisa 04/09/2025 10:22 :29 AM EDT > faxed to [facility] Scheduling * Procedures: C ryotherapy Wart: Indication(s): v errucoid lesion. N umber treated: 1 . C onsent: T he patient understood all the risks and benefits prior to treatment. The risks explained included scarring, hyper and/or hypo pigmentation. Although this treatment is highly effective, recurrences do occur and this was explained to the patient. M ethod: slim kline. P ost-Op instruction: T he patient tolerated the procedure well, Post Op instructions were given. Signs of infection were discussed. The patient was informed to call if any signs of infection develop such as increasing pain, purulent drainage or beefy redness. The patient was informed that a blister may occur at the cryo site and that this is an expected event.. * Procedure Codes: 1 7000 DESTRUCTION BENIGN LESION, CRYOSURGERY,ELECTROSURGERY FIRST LESION, G2211 Complex e/m visit add on, 1036F TOBACCO NON-USER, G8420 BMI<30 AND >=22 CALC & DOCU, G8950 PREHTN/HTN BP DOC INDCD F/U DOC, G8752 MOST RECENT SYSTOLIC BP < 140MM HG, G8754 MOST RECENT DIASTOLIC BP < 90MM HG * Follow Up: v ia phone to report progress,6 Months * Images: Billing Information: * Visit Code: 67526 Office Visit, Est Pt., Level 4. Modifiers: 25 * Procedure Codes: 88470 DESTRUCTION BENIGN LESION, CRYOSURGERY,ELECTROSURGERY FIRST LESION. G2211 Complex e/m visit add on. 1036F TOBACCO NON-USER. G8420 BMI<30 AND >=22 CALC & DOCU. G8950 PREHTN/HTN BP DOC INDCD F/U DOC. G8752 MOST RECENT SYSTOLIC BP < 140MM HG. G8754 MOST RECENT DIASTOLIC BP < 90MM HG. * Electronic signature of Marsha Powers MD on 05/01/2025 at 09:11 AM EDT Sign off status: Pending * Provider: John Powers M.D. Date: 04/09/2025 Generated for Richy cochran/Eligio/Donovanitting on: 05/01/2025 09:11 AM EDT History and Physical Notes * HPI (History of Present Illness) Category Sub-Category Detail Notes Category Not es Dermatology skin lesion Pt has an place on her right hand. Pt states that its been there for about a year off and on. Pt states spot on hand does not hurt unless she bumps it on something Cardiology Blood Pressure Elevated Pt here for 6 mo f/u on hypertension. Hyperlipidemia Pt is fasting today Examination Category Sub-Category Detail Notes Category Not es General Examination Heart: RSR Lungs: clear to auscultatio n Extremities: no leg edema General Appearance: NAD Skin: 3 mm wide white papu le near the 4 th MCP joint
--- OUTSIDE RECORDS SUMMARY | 2025-05-01 09:12 | XMS_ITS | Patient Health Record ---
Author Organization [facility] Address [address] [facility] [address] [place] [id number] Care Team Providers Care Occupational Health Physician Name Role Phone Nataly Morin Primary Care Provider King Powers Unavailable [phone] Allergies No Known Allergies Results Component Value Reference Range Notes P-TSH Reviewed date:10/08/2024 10:11:55 AM Interpretation: Normal Performing Lab: Notes/Report: Test performed by [facility] [address] [place] [address] , [address], [place] [address] Pavan Lorenzo MD, Sprinkling System Installer CLIA: [id number] TSH 1.34 0.43-5.25 mU/L P-Comprehensive Metabolic Pa mone (CMP) Reviewed date:04/10/2025 04:40:12 PM Interpretation:Na 132, cl 96, gluc 119, alk phos 122, bili 1.3 Performing Lab: Notes/Report: Test performed by [facility] [address] [place], [place] [address] , [address], [place] [address] Pavan Lorenzo MD, Sprinkling System Installer CLIA: [id number] Sodium 132 135-145 mmol/L Potassium 4.1 3.5-5.3 [...] Interpretation:Normal Performing Lab: Notes/Report: Test performed by [facility] [address] [place] [address] , [address], [place] [address] Pavan Lorenzo MD, Sprinkling System Installer CLIA: [id number] Thyroxine Free (free T4) 1.75 0.86-1.76 ng/dL P-Lipid Panel Reviewed date:04/10/2025 04:40:12 PM Interpretation:Normal Performing Lab: Notes/Report: Test performed by [facility] [address] [place] [address] , [address], [place] [address] Pavan Lorenzo MD, Sprinkling System Installer CLIA: [id number] Cholesterol 136 <200 mg/dL Triglycerides 97 <150 [...] Interpretation:Normal Performing Lab: Notes/Report: Test performed by [facility] [address] [place], [place] [address] [address] , [place] [address] aPvan Lorenzo MD, Sprinkling System Installer CLIA: [id number] TSH 0.57 0.43-5.25 mU/L P-Microalbumin/Creatinine, R andom Urine Sample Reviewed date:04/10/2025 04:40:13 PM Interpretation:Normal Performing Lab: Notes/Report: Test performed by [facility] [address] [place], [place] [address] , [address], [place] [address] Pavan Lorenzo MD, Sprinkling System Installer CLIA: [id number] Albumin/Creatinine Ratio, Urine 27 0-30 ug/m g Microalbumin, Urine, Random 1.8 Creatinine, Urine 67.8 P-Lipid Panel Reviewed date:10/08/2024 10:11:55 AM Interpretation: Normal Performing Lab: Notes/Report: Test performed by [facility] [address] [place] [address] , [place] [address] Pavan Lorenzo MD, Sprinkling System Installer CLIA: [id number] Cholesterol 138 <200 mg/dL Triglycerides 70 <150 [...] Results: 67 Units: mg/dL % Change: -2% P-Comprehensive Metabolic Pa mone (CMP) Reviewed date:10/08/2024 10:11:55 AM Interpretation:Na 130, cl 94, gluc 106, bili 1.4 Performing Lab: Notes/Report: Test performed by [facility] [address] , [address], [place] [address] Pavan Lorenzo MD, Sprinkling System Installer CLIA: [id number] Sodium 130 135-145 mmol/L Potassium 4.8 3.5-5.3 [...] 1.4 <0.2-1.2 mg/dL A/G Ratio 1.9 1.1-2.5 Mammogram Reviewed date:02/06/2025 05:00:33 PM Interpretation:Negative Performing Lab: Notes/Report: Negative Medications Medication SIG (Take, Route, Frequency, Duration) Notes Start Date End Date Status amLODIPine Besylate 5 MG 1 tab(s) orally once a day; Duration: 90 days Active B-12 1000 MCG 1/2 tab orally once a day Active Carvedilol 6.25 MG 1 tab(s) orally 2 ti mes a day; Duration: 90 days Active Advil 200 MG 1 tablet with food o r milk as needed Orally once a day Active Pravastatin Sodium 20 MG 1 tab(s) orally once a day (at bedtime); Duration: 90 days Active Ocuvite Adult 50+ - as directed Orally Active Alendronate Sodium 35 MG 1 tab(s) orally once a week; Duration: 90 days Active Irbesartan-hydroCHLOROthiaz violette 300-12.5 MG 1 tablet Orally Once a day; Duration: 90 days 04/09/2025 Active Maxidex 0.1 % as directed Ophthalmic Active Synthroid 150 MCG 1 tab(s) orally once a day; Duration: 90 days Active Aspirin Adult Low Dose 81 MG 1 tab orally once a day Acti ve Calcium + Vitamin D3 600-5 MG-MCG 1 tab(s) orally once daily Active CoQ-10 100 MG 1 cap(s) orally once a day 07/07/2016 Active Immunizations Vaccine Route Administration Date Status Comme nts xFluzone High Dose-private (65yr&older) Unknown 07/01/2016 Administered xFluzone High Dose-private (65yr&older) Unknown 07/17/2019 Administered xFluzone High Dose-private (65yr&older) Unknown 07/16/2020 Administered xFluzone High Dose-private (65yr&older) Unknown 06/26/2021 Administered Tetanus Tdap-Adacel (over 7yrs) IM Intramuscular 07/25/2008 Administered Tetanus Tdap-Adacel (over 7yrs) IM Intramuscular 01/22/2019 Administered Tetanus Tdap-Adacel (over 7yrs) Unknown 10/19/2022 Administered Shingrix IM Intramuscular 12/06/2018 Administered Shingrix Unknown 12/06/2018 Administered Prevnar (PCV13) IM Intramuscular 03/05/2015 Administered PNEUMOVAX 23 VACCINE IM Intramuscular 02/23/2017 Administe red Fluzone High Dose (65yr and older) IM Intramuscular 06/23/2017 Administered Fluzone High Dose (65yr and older) Unknown 06/30/2022 Administered COVID 19 Moderna Unknown 11/21/2020 Administered COVID 19 Moderna Unknown 12/19/2020 Administered COVID 19 Moderna Unknown 08/08/2021 Administered COVID 19 Moderna Unknown 03/15/2022 Administered Problems Problem Type SNOMED Code ICD Code Onset Dates Problem Status W/U Status Risk Notes Problem Hypokalemia (55710729) Hypokalemia (E87.6) Active confirmed Problem Hyponatremia (25552210) Hyponatremia (E87.1) Active confirmed Problem Hypertension (05863017) HTN (hypertension) (I10) Active confirmed Problem Vitamin B12 deficiency (844037594) Vitamin B12 deficiency (E53.8) Active confirmed Problem Essential hypertension (50483485) Essential hypertension (I10) Active confirmed Problem Abnormal mammogram (674694148) Abnormal mammogram (R92.8) Active confirmed Problem Arthritis (1776390) Arthritis (M19.90) Active c onfirmed Problem Hyperbilirubinemia (36960826) Hyperbilirubinemia (E80.6) Active confirmed Problem Pure hypercholesterolemia (237343128) Pure hypercholesterolemia (E78.0) Active confirmed Problem Acquired hypothyroidism (860320501) Acquired hypothyroidism (E03.9) Active confirmed Problem Administrative reaso n for encounter (333019445) Encounter for administrative examinations (Z02.9) Active confirmed Problem Pure hypercholesterolemia (381985854) Pure hypercholesterolemia (E78.00) Active confirmed Problem Pure hypercholesterolemia (290885478) Pure hypercholesterolemia, unspecified (E78.00) Active confirmed Problem Varicose veins of both legs (82152752809937533) Varicose veins of legs (I83.93) Active confirmed Problem Osteopenia of michael mbar spine (M85.88) Active confirmed Problem Hordeolum externum (5911220) Hordeolum externum of left upper eyelid (H00.014) Active confirmed Vital Signs Heart Rate 69 /min 04/09/2025 Blood pressure diastolic 70 mm Hg 04/09/2025 Height 64 in 04/09/2025 Blood pressure systolic 132 mm Hg 04/09/2025 Weight 165 lbs 04/09/2025 BMI 28.32 kg/m2 04/09/2025 Encounters Encounter Location Date Provider Diagnosis [facility] [address] [place] [id number] 10/05/2024 Nataly Morin Essential hypertensi on I10 ; Acquired hypothyroidism E03.9 ; Varicose veins of legs I83.93 and Pure hypercholesterolemia, unspecified E78.00 [facility] [address] [place], [place] [id number] 04/09/2025 King Priya Essential hypertensi on I10 ; Acquired hypothyroidism E03.9 ; Hypokalemia E87.6 ; Hyponatremia E87.1 ; Pure hypercholesterolemia E78.00 ; Osteoporosis screening Z13.820 ; Wart of hand B07.9 and BMI 28.0-28.9,adult Z68.28 [facility] [address] [place], [place] [id number] 10/08/2024 Nataly Brant [facility] [address] [place], [place] [id number] 04/10/2025 King Priya Assessments Encounter Date Diagnosis (ICD Code) Assessment Notes Treatment Notes Treatment Clinical Notes Section Notes 10/05/2024 Essential hypertensi on (ICD-10 - I10) 10/05/2024 Acquired hypothyroid ism (ICD-10 - E03.9) 04/09/2025 Essential hypertensi on (ICD-10 - I10) 04/09/2025 Acquired hypothyroid ism (ICD-10 - E03.9) 10/05/2024 Varicose veins of le gs (ICD-10 - I83.93) 04/09/2025 Hypokalemia (ICD-10 - E87.6) 10/05/2024 Pure hypercholesterolemia, unspecified (ICD-10 - E78.00) 04/09/2025 Hyponatremia (ICD-10 - E87.1) 04/09/2025 Pure hypercholesterolemia (ICD-10 - E78.00) 04/09/2025 Osteoporosis screeni ng (ICD-10 - Z13.820) 04/09/2025 Wart of hand (ICD-10 - B07.9) 04/09/2025 BMI 28.0-28.9,adult (ICD-10 - Z68.28) Plan Of Treatment Pending Test Test Name Order Date DEXA Hip and Spine 04/09/2025 Next Appt Details Provider Name:Nataly Asher er, 10/14/2025 09:45:00 AM, [address], [address], [place], [id number], Insurance Providers Payer Name Payer Address Payer Phone Subscriber Number Group Number Insured Name Patient Relationship to Insured Coverage Start Date Coverage End Date [facility] [address] [place] [address] [id number] TARAS ALEJANDRO Self - patient is the insured Medications Administered Medication Instructions Date of Administration Dosage Notes B-12 02/23/2021 1 mL B-12 03/27/2021 1 mL B-12 05/29/2021 1 mL B-12 07/07/2021 1 mL B-12 07/31/2021 1 mL B-12 09/08/2021 1 mL B-12 10/07/2021 1 mL Patient tolera hank well Medical (General) History Medical History History ICD Code Hypertension Arthritis Hypothyroidism [employer] syndrome Flu shot 2020, [employer] Shingix #1 Moderna Covid Vaccine Dec 2020 COVID 19 Booster, Moderna 08/08/21 RSV vaccine 08/05/23 06/30/23 COVID 19 booster and Flu shot Surgical History Surgery Date(Month/Year) cyst removed from right foot 2004 tubal ligation bilateral knee replacement 12/15/2009 post-op transfusion, 2 units 12/15/2009 laser vein treatment, left leg, Dr.Ziad Prescott [phone] 08/12/2016 Hospitalization History Reason Date(Month/Year) childbirth
--- NOTE | 2025-05-01 09:16 | XR_ITS ---
FINAL REPORT CLINICAL HISTORY: SCREENING COMPARISON: 03/25/2023 FINDINGS: Using L1-4, the bone mineral density of the spine is 0.990 g/cm2, corresponding to T-score of -0.5, within normal limits. Previously was 0.967 with a T-score of -0.7. Using the left hip, the bone mineral density of the total hip is 0.896 g/cm2, corresponding to a T-score of -0.4, within normal limits. Previously was 0.887 with a T-score of -0.5. Using the right hip, the bone mineral density of the total hip is 0.892 g/cm2, corresponding to a T-score of -0.4, within normal limits. Previously was 0.885 with a T-score of -0.5. FRAX not reported because all T-scores at or above-1.0. Patient is being treated for osteoporosis. NOTE: T-score: Standard deviation compared with peak bone mass of young adult mean. *Following the recommendations of the International Society of Bone densitometry, classification of hip BMD is based on the lower of two T-scores; total hip or femoral neck. IMPRESSION: Normal bone mineral density of the lumbar spine and hips. Reviewed, Interpreted and Dictated by Stephanie Zamora MD Transcribed by Gloria Guerrier Authenticated and [facility]
== END 2025-05-01 23:59 | disposition home or self-care (01) ==
LOC: RAD 09:10
PROVIDERS: PCP Family Medicine; Visit Provider Family Medicine
DX: Z13.820 Encounter for screening for osteoporosis (principal); Z78.0 Asymptomatic menopausal state
CPT/HCPCS: 77080